=== PATIENT | female | born 1980 | race Caucasian/White ===

== ENCOUNTER 2017-04-27 09:51 | Emergency (ER) | payer MEDICARE, MEDICAID ==
--- NOTE | 2017-04-27 11:07 | UC ---
Lower Extremity/Ankle HPI - HPI Summary HPI Summary: 36 year old female presents with complains of right knee pain with no trauma. - History of Current Complaint Stated Complaint: RIGHT KNEE PAIN Time Seen by Provider: 04/27/17 11:06 Hx Obtained From: Patient Hx Last Menstrual Period: 02/02/16 Onset/Duration: Sudden Onset Severity Initially: Moderate Severity Currently: Moderate Pain Scale Used: 0-10 Numeric - 7 - Allergies/Home Medications Allergies/Adverse Reactions: Allergies Allergy/AdvReac Type Severity Reaction Status Date / Time Latex Allergy Severe Hives Verified 04/27/17 11:17 Levofloxacin [From Levaquin] Allergy Intermediate Hives Verified 04/27/17 11:17 Nitrofurantoin Allergy Intermediate Hives Verified 04/27/17 11:17 [From Macrodantin] Codeine AdvReac Intermediate Hives Verified 04/27/17 11:17 Morphine and Related AdvReac Intermediate Hives Verified 04/27/17 11:17 PMH/Surg Hx/FS Hx/Imm Hx Previously Healthy: Yes - Surgical History Surgical History: Yes Surgery Procedure, Year, and Place: too many to name (r/t to CP). gallbladder - Family History Known Family History: Positive: Hypertension - Social History Alcohol Use: Occasionally Substance Use Type: None Smoking Status (MU): Never Smoked Tobacco - Immunization History Most Recent Influenza Vaccination: [id number] Review of Systems Constitutional: Negative Skin: Negative Eyes: Negative ENT: Negative Respiratory: Negative Cardiovascular: Negative Gastrointestinal: Negative Genitourinary: Negative Motor: Negative Neurovascular: Negative Musculoskeletal: Other: - right knee pain/swelling Neurological: Negative Psychological: Negative All Other Systems Reviewed And Are Negative: Yes Physical Exam Triage Information Reviewed: Yes Vital Signs Reviewed: Yes Eye Exam: Normal ENT Exam: Normal Dental Exam: Normal Neck exam: Normal Neck: Positive: 1 Respiratory Exam: Normal Cardiovascular Exam: Normal Abdominal Exam: Normal Musculoskeletal: Positive: Other: - right medial knee pain/swelling Neurological Exam: Normal Psychological Exam: Normal Skin Exam: Normal Lower Extremity Course/Dx - Differential Dx/Diagnosis Provider Diagnoses: right knee bursitis Discharge - Discharge Plan Condition: Stable Disposition: HOME Prescriptions: Diclofenac 1% GEL (NF) [Voltaren 1% GEL (NF)] 1 gm TOPICAL BID PRN #1 tube PRN Reason: Pain Methylprednisolone [Medrol Dosepak 4 MG*] 4 mg PO .SEE RUSSELL INSTRUCTION #21 tab Patient Education Materials: Knee Bursitis (ED), Tendinitis (ED) Forms: *Work Release Referrals: Yee Velasquez MD [Primary Care Provider] -
[2017-04-27 11:25] VITALS: BP 148/88
--- NOTE | 2017-04-27 11:53 | RAD ---
HISTORY: Right knee pain COMPARISONS: None relevant VIEWS: 4, Frontal, lateral, axial, and oblique views of the right knee FINDINGS: BONE DENSITY: Normal. BONES: There is no displaced fracture. JOINTS: There is minimal patellofemoral and lateral compartment osteophyte formation. There is no suprapatellar joint effusion or lipohemarthrosis. ALIGNMENT: There is no dislocation. SOFT TISSUES: Unremarkable. OTHER FINDINGS: None. IMPRESSION: MILD OSTEOARTHRITIS. NO ACUTE OSSEOUS INJURY. IF SYMPTOMS PERSIST, RECOMMEND REPEAT IMAGING.
--- NOTE | 2017-04-27 12:08 | RAD ---
HISTORY: Right leg swelling COMPARISONS: None relevant TECHNIQUE: Multiple transverse and longitudinal ultrasound images were obtained of the right lower extremity from the level of the common femoral vein inferiorly through to the infrapopliteal veins using grayscale, color Doppler, and spectral Doppler imaging with and without compression and with augmentation. Comparison images were obtained of the contralateral common femoral vein. FINDINGS: The study is limited by patient body habitus. VEINS: The venous system of the right lower extremity is compressible throughout its course, with normal flow on color Doppler imaging and normal response to augmentation on spectral Doppler imaging. The right peroneal vein is not well visualized. SOFT TISSUES: Unremarkable. OTHER FINDINGS: None. IMPRESSION: NO RIGHT LOWER EXTREMITY DEEP VEIN THROMBOSIS
== END 2017-04-27 12:25 | disposition home or self-care (01) ==
LOC: UCCORT 09:51
DX: M71.561 Other bursitis, not elsewhere classified, right knee (principal); M79.89 Other specified soft tissue disorders; Z88.5 Allergy status to narcotic agent; Z88.1 Allergy status to other antibiotic agents; Z91.040 Latex allergy status
CPT/HCPCS: 99212; G0463

== ENCOUNTER 2019-01-15 10:04 | Emergency (ER) | payer MEDICARE, MEDICAID ==
[2019-01-15 10:48] VITALS: BP 132/73
--- NOTE | 2019-01-15 11:06 | UC ---
Ear Complaint HPI - HPI Summary HPI Summary: Pt presents with c/o right ear pain that began 1 week ago. Pt was seen in [facility] and dx with om and given PO antibiotics. Pt states symptoms have improved and she has been using antibiotic ear drops but she still has dull ache in right ear with some loss of hearing. - History of Current Complaint Chief Complaint: UCEar Stated Complaint: RIGHT EAR Time Seen by Provider: 01/15/19 11:00 Hx Obtained From: Patient Hx Last Menstrual Period: 12/2018 ?: No Onset/Duration: Gradual Onset, Lasting Days, Still Present Severity Initially: Mild Severity Currently: Mild Pain Intensity: 0 Associated Signs/Symptoms: Positive: Hearing Loss - Allergies/Home Medications Allergies/Adverse Reactions: Allergies Allergy/AdvReac Type Severity Reaction Status Date / Time MS Latex [Latex] Allergy Severe Hives Verified 04/27/17 11:17 MS Levofloxacin Allergy Intermediate Hives Verified 04/27/17 11:17 [From Levaquin] MS Nitrofurantoin Allergy Intermediate Hives Verified 04/27/17 11:17 [From Macrodantin] MS Codeine [Codeine] AdvReac Intermediate Hives Verified 04/27/17 11:17 MS Morphine and Related AdvReac Intermediate Hives Verified 04/27/17 11:17 [Morphine and Related] Home Medications: Home Medications Cholecalciferol TAB* [Vitamin D TAB*] 1,000 unit PO DAILY 01/15/19 [History Confirmed 01/15/19] Potassium Chlor TAB* [Klor Con ER TAB*] 1 dose PO DAILY 01/15/19 [History Confirmed 01/15/19] Unknown Ear Drops 1 dose RIGHT EAR Q8HR 01/15/19 [History Confirmed 01/15/19] PMH/Surg Hx/FS Hx/Imm Hx Previously Healthy: Yes Cardiovascular History: Hypertension - Surgical History Surgical History: Yes Surgery Procedure, Year, and Place: too many to name (r/t to CP). gallbladder. eye surgery. R elbow - Family History Known Family History: Positive: Hypertension - Social History Occupation: Employed Full-time Lives: With Family Alcohol Use: Rare Substance Use Type: None Smoking Status (MU): Never Smoked Tobacco Have You Smoked in the Last Year: No - Immunization History Most Recent Influenza Vaccination: [id number] Vaccination Up to Date: Yes Review of Systems All Other Systems Reviewed And Are Negative: Yes Constitutional: Positive: Negative Skin: Positive: Negative Eyes: Positive: Negative ENT: Positive: Ear Ache - right Respiratory: Positive: Negative Cardiovascular: Positive: Negative Gastrointestinal: Positive: Negative Genitourinary: Positive: Negative Motor: Positive: Negative Neurovascular: Positive: Negative Musculoskeletal: Positive: Negative Neurological: Positive: Negative Psychological: Positive: Negative Is Patient Immunocompromised?: No Physical Exam Triage Information Reviewed: Yes Appearance: Well-Appearing Vital Signs: Initial Vital Signs Temp 98.9 F 01/15/19 10:40 Pulse 88 01/15/19 10:40 Resp 20 01/15/19 10:40 BP 132/73 01/15/19 10:40 Pulse Ox 100 01/15/19 10:40 Vital Signs Reviewed: Yes Eye Exam: Normal ENT: Positive: Other - cerumen right ear canal Dental Exam: Normal Neck exam: Normal Respiratory Exam: Normal Respiratory: Positive: No respiratory distress Musculoskeletal Exam: Normal Neurological Exam: Normal Psychological Exam: Normal Skin Exam: Normal Ear Complaint Course/Dx - Differential Dx/Diagnosis Differential Diagnosis/HQI/PQRI: Cerumen Impaction Provider Diagnosis: Ear ache, Cerumen impaction Discharge ED - Sign-Out/Discharge Documenting (check all that apply): Patient Departure All imaging exams completed and their final reports reviewed: No Studies - Discharge Plan Condition: Stable Disposition: HOME Patient Education Materials: Earache (ED) Referrals: Andriy Irvin MD [Primary Care Provider] - If Needed - Billing Disposition and Condition Condition: STABLE Disposition: Home
== END 2019-01-15 11:18 | disposition home or self-care (01) ==
LOC: UCCORT 10:04
DX: H92.01 Otalgia, right ear (principal); H61.21 Impacted cerumen, right ear; I10 Essential (primary) hypertension
CPT/HCPCS: 99212; G0463